=== PATIENT | male | born 1970 | race Caucasian/White ===

== ENCOUNTER 2022-04-05 08:34 | Outpatient (CLI) | payer OTHER, SELFPAY ==
[2022-04-05 13:53] LABS: Basophils Absolute Auto 0.02 K/uL (0.00-0.30); Basophils Percent Auto 0.3 % (0.0-3.0); Eosinophils Absolute Auto 0.16 K/uL (0.00-0.50); Hematocrit 45.6 % (37.0-53.0); Hemoglobin* 15.6 gm/dL (13.5-17.5); Immature Granulocytes Abs Auto 0.02 K/uL (0.00-0.30); Lymphocytes Absolute Auto 1.58 K/uL (0.90-2.90); Lymphocytes Percent Auto 20.2 % (20-44); Mean Corpuscular HGB Conc 34 gm/dL (32-36); Mean Corpuscular Hemoglobin 31 pg (26-34); Mean Corpuscular Volume 91 fL (80-100); Monocytes Percent Auto 9.1 % (0.0-11.0); Neutrophils Absolute Auto 5.34 K/uL (1.7-7.0); Neutrophils Percent Auto 68.1 % (42.0-72.0); Platelet Count* 199 K/uL (140-440); RDW Coefficient of Variation % 11.6 % (11.5-15.5); Red Blood Count 5.02 m/uL (4.30-5.90); White Blood Count* 7.83 K/uL (4.50-11.00)
[2022-04-05 14:01] LABS: Slide Review Reflex No
[2022-04-05 17:21] LABS: Albumin* 4.4 g/dL (3.3-5.0); Chloride* 107 mmol/L (96-114); Sodium* 137 mmol/L (135-149)
[2022-04-05 17:22] LABS: Potassium* 4.4 mmol/L (3.6-5.1)
[2022-04-05 17:25] LABS: Alanine Aminotransferase* 55 U/L (4-50); Alkaline Phosphatase* 75 U/L (40-150); Aspartate Amino Transferase* 36 U/L (12-35); Bilirubin Total* 0.4 mg/dL (0.1-1.5); Blood Urea Nitrogen* 17 mg/dL (7-30); Calcium* 9.1 mg/dL (8.4-10.6); Carbon Dioxide* 21 mmol/L (20-32); Cholesterol* 262 mg/dL (90-199); Estimated Glomerular Filt Rate 91.12; Glucose* 111 mg/dL (60-115); HDL Cholesterol* 51 mg/dL (>=40); LDL Cholesterol Calculated 163 mg/dL (<100); Total Protein* 6.6 g/dL (6.0-8.3); Triglycerides* 242 mg/dL (40-149)
[2022-04-05 17:57] LABS: PSA Screen* 2.75 ng/mL (0.10-4.00)
== END 2022-04-05 08:35 | disposition home or self-care (01) ==
PROVIDERS: PCP Nurse Practitioner Family; Visit Provider Nurse Practitioner Family
DX: Z00.00 Encounter for general adult medical examination without abnormal findings (principal); E78.5 Hyperlipidemia, unspecified; R53.83 Other fatigue; Z13.1 Encounter for screening for diabetes mellitus; Z12.5 Encounter for screening for malignant neoplasm of prostate
CPT/HCPCS: 36415; 80053; 80061; 84153; 84443; 85025

== ENCOUNTER 2023-05-01 08:17 | Outpatient (CLI) | payer OTHER, SELFPAY | END 2023-05-01 08:18 | disposition home or self-care (01) | PROVIDERS: PCP Nurse Practitioner Family; Visit Provider Nurse Practitioner Family | DX: Z00.00 Encounter for general adult medical examination without abnormal findings (principal); E78.5 Hyperlipidemia, unspecified; Z13.1 Encounter for screening for diabetes mellitus; Z13.0 Encounter for screening for diseases of the blood and blood-forming organs and certain disorders involving the immune mechanism; Z12.5 Encounter for screening for malignant neoplasm of prostate | CPT/HCPCS: 80053; 80061; 84153; 85025 ==

== ENCOUNTER 2024-06-04 08:16 | Outpatient (CLI) | payer OTHER, SELFPAY ==
--- OUTSIDE RECORDS SUMMARY | 2024-06-04 08:20 | XMS_ITS | Clinical Summary ---
Author Organization [facility] Address [address] [place] [address] Support Name Relationship Address Phone Evy Hale Emergency Contact Unknown [phone] Dec Pt Emergency Contact 09/10 Unavailable Care Team Providers Care Carry Out Clerk Name Role Phone Unavailable Primary Care Provider Unavailabl e Source Comments You are receiving this document as you are listed as the primary care provider,follow-up provider, or the patient has been referred to you for consultation.This is in compliance with the Medicare and[facility] EHR Incentive Program,which states Providers who transition their patient to another setting of careor provider of care or refers their patient to another provider of care shouldprovide summary care record for each transition of care or referral. [facility] Allergies No known active allergies Medications Medication Sig Dispensed Refills Start Date End Date Status ibuprofen (MOTRIN) 200 MG tablet As needed 100 Tab 09/11/2017 Active Cholecalciferol (VITAMIN D) 1000 UNITS tablet Take 5,000 Units by mouth daily. 100 Tab 3 09/11/2017 Active multivitamin (THERAGRAN) tabletIndications:Michael yohannes, unspecified type,Major depressive disorder with current active episode, unspecified depression episode severity, unspecified whether recurrent (HRC),Difficulty concentrating Take 1 Tablet by mouth daily. Active lansoprazole (PREVACID) 30 MG capsuleIndications:Gas troesophageal reflux disease, unspecified whether esophagitis present Take 1 Capsule by mouth daily. 90 Capsule 3 11/18/2020 Active buPROPion (WELLBUTRIN XL) 150 MG 24 hour release tabletIndications:Shilpi r depressive disorder with current active episode, unspecified depression episode severity, unspecified whether recurrent (HRC) Take 2 Tablets by mouth daily. 180 Tablet 1 06/09/2021 Active Active Problems Problem Noted Date Diagnosed Date Difficulty concentrating 11/23/2020 Elevated blood pressure reading 11/23/2020 Major depressive disorder with current active ep isode 11/23/2020 Pain 11/23/2020 Gastroesophageal reflux disease 11/23/2020 Screen for colon cancer 11/08/2020 Elevated LFTs 11/08/2020 Fatigue 11/08/2020 Resolved Problems Problem Noted Date Diagnosed Date Resolved Date Eyelid gland swelling, right 07/21/2020 11/23/2020 Immunizations Name Administration Dates Next Due Influenza IIV4 (Quadrivalent) 0.5mL (30920) 06/26,11/15/2019 Tdap 10/03/2017 Family History Medical History Relation Name Comments COPD Father Coronary Artery Disease Mother Alcohol Abuse Maternal Grandfather Coronary Artery Disease Maternal Grandfather from MD early 50s Diabetes, Type II Maternal Grandmother Stroke Maternal Grandmother Dementia Paternal Grandfather Relation Name Status Comments Father Mother Maternal Grandfather Maternal Grandmother Paternal Grandfather Social History Tobacco Use Types Packs/Day Years Used Date Smoking Tobacco: Every Day Cigarettes Smokeless Tobacco: Never Tobacco Cessation:Ready to Q uit: Yes Alcohol Use Standard Drinks/Week Comments Yes 0 (1 standard drink = 0.6 oz pur e alcohol) 2-3 per day PHQ-2 Answer Date Recorded PHQ-2 Score 2 11/18/2020 Sex and Gender Information Value Date Recorded Sex Assigned at Not on file Gender Identity Not on file Sexual Orientation Not on file Last Filed Vital Signs Vital Sign Reading Time Taken Comments Blood Pressure 144/79 11/06/2020 8:35 AM DENIER CONTROL OPERATOR Pulse 79 11/06/2020 8:35 AM DENIER CONTROL OPERATOR Temperature 36.8 ??C (98.2 ??F) 11/06/2020 8:35 AM CS T Respiratory Rate 16 11/06/2020 8:35 AM DENIER CONTROL OPERATOR Oxygen Saturation - - Inhaled Oxygen Concentration - - Weight 86.9 kg (191 lb 9.6 oz) 11/06/2020 8:35 A M DENIER CONTROL OPERATOR Height 178.3 cm (5' 10.2) 11/06/2020 8:35 AM CS T Body Mass Index 27.34 11/06/2020 8:35 AM DENIER CONTROL OPERATOR Plan of Treatment Health Maintenance Due Date Last Done Comments Colon Cancer Screening Plan Due 1970 MTM Covered 1970 Pneumococcal (1 - PCV) 1976 HIV Screening (Preventive Services) 1986 HepB (1) 1989 Zoster/Shingles (1 of 2) 2020 Adult Preventive Visit 11/06/2021 , 11/13/2019 PSA Screening Discussion 11/06/2021 021, 11/13/2019 COVID-19 Vaccine (3 - 2022-2 4 season) 2024 01/21/2021, 12/30/2020 Influenza (#1) 2024 07/14/2020, 11/15/2019 Cholesterol 11/06/2025 11/06/2020, 11/13/2019 DTaP/Tdap/Td (2 - Tdap) 10/03/2027 10/03/2017 Hep C Screening (Preventive Services) Completed 11/06/2020 HepA Aged Out No longer eligi ble based on patient's age to complete this topic Hib Aged Out No longer eligi ble based on patient's age to complete this topic IPV (Polio) Aged Out No longer eligi ble based on patient's age to complete this topic MCV4 Aged Out No longer eligi ble based on patient's age to complete this topic Procedures Procedure Name Priority Date/Time Associated Diagnosis Comments PROSTATIC SPECIFIC ANTIGEN(SCREEN) Routine 11/06/2020 11:07 AM DENIER CONTROL OPERATOR Preventative health care HEPATITIS C ANTIBODY, WITH REFLEX Routine 11/06/2020 11:07 AM DENIER CONTROL OPERATOR Elevated LFTs LIPID PANEL & DIRECT LDL (IF NEEDED) Routine 11/06/2020 11:07 AM DENIER CONTROL OPERATOR Preventative health care from Last 3 Months or Most Recently Relevant to Health Maintenance Results * (ABNORMAL) Lipid Panel and Direct LDL(If Needed) (11/06/2020 11:07 AM DENIER CONTROL OPERATOR) Cholesterol 251(H) 0 - 199 mg/dL 11/06/2020 3:27 PM DENIER CONTROL OPERATOR [facility] Triglyceride 203(H) <=149 mg/dL 11/06/2020 3:27 PM DENIER CONTROL OPERATOR [facility] HDL Cholesterol 47 >=40 mg/dL 11/06/2020 3:27 PM DENIER CONTROL OPERATOR [facility] LDL, Calculated 163(H) <130 mg/dL 11/06/2020 3:27 PM [facility] Non HDL Chol, Calculated 204 mg/dL 11/06/2020 3:27 PM [facility] Cholesterol/HDL Ratio 5.3 11/06/2020 3:27 PM [facility] Hours Fasting 12 11/06/2020 3:27 PM [facility] Blood Venipuncture / Unknown 11/06/2020 11:07 AM DENIER CONTROL OPERATOR 11/06/2020 11:07 AM DENIER CONTROL OPERATOR Wan Gao MD LAB_1 Performing Organization Address [facility]/ZIP Co de Phone Number [facility] [address] [phone] [address] * Prostatic Specific Antigen (Screen) (11/06/2020 11:07 AM DENIER CONTROL OPERATOR) Pathologist [facility] Prostatic Specific Antigen 2.4 0.0 - 4.0 ng/mL 11/06/2020 3:35 PM [facility] Blood Venipuncture / Unknown 11/06/2020 11:07 AM DENIER CONTROL OPERATOR 11/06/2020 11:07 AM DENIER CONTROL OPERATOR Narrative [facility] - 11/06/2020 3:35 PM DENIER CONTROL OPERATOR The [place] PSA Chemiluminescent immunoassay is used. Results obtained with different test methods or kits cannot be used interchangeably. Wan Gao MD LAB_1 Performing Organization Address City/[facility]/ZIP Co de Phone Number [facility] [address] [phone] * Hepatitis C Antibody, with Reflex (11/06/2020 11:07 AM DENIER CONTROL OPERATOR) Hepatitis C Antibody Negative (Non Reactive) Negative (Non Reactive) 11/06/2020 3:35 PM DENIER CONTROL OPERATOR [facility] Comment:Antibodies to HCV no t detected. Does not exclude the possiblity of exposure to HCV. Blood Venipuncture / Unknown 11/06/2020 11:07 AM DENIER CONTROL OPERATOR 11/06/2020 11:07 AM DENIER CONTROL OPERATOR Wan Gao MD LAB_1 Performing Organization Address City/State/[facility] [[email or web address]] Co de Phone Number [facility] [address] [place] [id number] [phone] from Last 3 Months or Most Recently Relevant to Health Maintenance [address] [address] Juni Bruner Personal/Family Self 1970 [address] [id number]
== END 2024-06-04 08:17 | disposition home or self-care (01) ==
PROVIDERS: PCP Nurse Practitioner Family; Visit Provider Nurse Practitioner Family
DX: E78.5 Hyperlipidemia, unspecified (principal); L98.9 Disorder of the skin and subcutaneous tissue, unspecified; Z13.0 Encounter for screening for diseases of the blood and blood-forming organs and certain disorders involving the immune mechanism; Z12.5 Encounter for screening for malignant neoplasm of prostate; Z13.228 Encounter for screening for other metabolic disorders
CPT/HCPCS: 80053; 80061; 85025; 86618; 87468; 87469; 87484; 87798; G0103

== ENCOUNTER 2025-01-20 15:33 | Outpatient (CLI) | payer BC, SELFPAY | END 2025-01-20 15:34 | disposition home or self-care (01) | PROVIDERS: PCP Nurse Practitioner Family; Visit Provider Nurse Practitioner Family | DX: R53.83 Other fatigue (principal); A69.20 Lyme disease, unspecified; R21 Rash and other nonspecific skin eruption | CPT/HCPCS: 82306; 86140; 87468; 87469; 87484; 87798 ==

== ENCOUNTER 2025-07-10 08:24 | Outpatient (CLI) | payer BC, SELFPAY | END 2025-07-10 08:25 | disposition home or self-care (01) | PROVIDERS: PCP Nurse Practitioner Family; Visit Provider Nurse Practitioner Family | DX: Z00.00 Encounter for general adult medical examination without abnormal findings (principal); E78.1 Pure hyperglyceridemia; E78.5 Hyperlipidemia, unspecified; Z13.0 Encounter for screening for diseases of the blood and blood-forming organs and certain disorders involving the immune mechanism | CPT/HCPCS: 80053; 80061; 85025; G0103 ==

== ENCOUNTER 2025-07-11 08:26 | Outpatient (CLI) | payer BC, SELFPAY | END 2025-07-11 08:27 | disposition home or self-care (01) | LOC: KYNREF 08:27 | PROVIDERS: PCP Nurse Practitioner Family; Visit Provider Nurse Practitioner Family | DX: R73.9 Hyperglycemia, unspecified (principal) | CPT/HCPCS: 83036 ==

== ENCOUNTER 2025-07-18 07:45 | Outpatient (CLI) | payer BC, SELFPAY ==
--- NOTE | 2025-07-18 08:00 | CRLHL7_ITS ---
For Patients: As a result of the Century Cures Act, medical imaging exams and procedure reports are released immediately into your electronic medical record. You may view this report before your referring provider. If you have questions, please contact your health care provider. INDICATION: Lung cancer screening. History of smoking. TECHNIQUE: Low-dose lung cancer screening non-contrast CT chest. Dose reduction techniques were used. COMPARISON: None. FINDINGS: NODULES: None. LUNGS AND PLEURA: Mild scarring within the medial right lower lobe. No pleural effusion or pulmonary edema. MEDIASTINUM: No adenopathy. CORONARY ARTERY CALCIFICATION: None. LIMITED UPPER ABDOMEN: Unremarkable. MUSCULOSKELETAL: There is no fracture. IMPRESSION: Negative for lung cancer screening purposes. LUNG-RADS CATEGORY: 1: Negative. RADIOLOGIST RECOMMENDATION: Continue annual screening, if eligible, with low-dose CT chest in 12 months. Please note that all CT scans at this facility use dose modulation, iterative reconstruction, and/or weight-based dosing when appropriate to reduce radiation dose to as low as reasonably achievable. Dictated by Reed Julio MD @ 07/18/2025 8:52:35 AM (Electronically Signed)
== END 2025-07-18 07:46 | disposition home or self-care (01) ==
LOC: CT 07:45
PROVIDERS: PCP Nurse Practitioner Family; Visit Provider Nurse Practitioner Family
DX: Z12.2 Encounter for screening for malignant neoplasm of respiratory organs (principal); F17.219 Nicotine dependence, cigarettes, with unspecified nicotine-induced disorders
CPT/HCPCS: 71271